=== PATIENT | male | born 1935 | race Caucasian/White ===

== ENCOUNTER 2021-04-07 16:56 | Emergency (ER) | payer MEDICARE ==
[2021-04-07] MEDS ORDERED: Sodium Chloride 0.9% 10 ML Syringe FLUSH PRN (17:01)
[2021-04-07] MEDS ORDERED: Sodium Chloride 0.9% 500 ML IV ONE (17:01)
[2021-04-07] MEDS ORDERED: Labetalol 100 MG in Sodium Chloride 0.9% 80 ML IV SCH (17:15)
--- NOTE | 2021-04-07 17:16 | EDM.PDOC ---
ED HPI GENERAL MEDICAL PROBLEM - General Chief Complaint: Neuro Symptoms/Deficits Stated Complaint: STROKE Time Seen by Provider: 04/07/21 16:57 Source of Information: Reports: Patient History Limitations: Reports: No Limitations - History of Present Illness INITIAL COMMENTS - FREE TEXT/NARRATIVE: Code stroke 1700 met the patient in the garage and wheeled the patient directly to CT scanner for CT head. Karlos is an 85-year-old male presenting to the ED with acute onset of left-sided weakness, difficulty walking, and some difficulty with word finding. Patient was in his usual state of health until approximately 60 minutes ago when he started having symptoms. They have progressed over the last 30 minutes prompting his to bring him to the ER for evaluation. Patient has a history of TIAs in the past. He takes an aspirin every other day. Denies any trauma. He does state that it is difficult for him to walk and ambulate. Has noticeable weakness in the left side with upper and lower extremity. He does have a history of hypertension for which he takes valsartan. - Related Data Allergies Allergy/AdvReac Type Severity Reaction Status Date / Time No Known Allergies Allergy Verified 04/07/21 17:21 Home Meds: Home Meds Minocycline [Minocin] 50 mg PO ASDIRECTED 02/27/16 [History] Potassium Chloride 20 meq PO DAILY 02/27/16 [History] Sildenafil Citrate [Viagra] 25 mg PO ASDIRECTED 02/27/16 [History] Valsartan [Diovan] 60 mg PO DAILY 02/27/16 [History] atorvaSTATin [Lipitor] 20 mg PO DAILY 02/27/16 [History] Past Medical History HEENT History: Reports: Hard of Hearing Cardiovascular History: Reports: High Cholesterol, Hypertension Genitourinary History: Reports: Prostate Disorder Oncologic (Cancer) History: Reports: Other (See Below) Other Oncologic History: skin cancer - Infectious Disease History Infectious Disease History: Reports: Chicken Pox, Measles, Mumps - Past Surgical History HEENT Surgical History: Reports: Tonsillectomy ED ROS GENERAL - Review of Systems Review Of Systems: See Below Constitutional: Reports: No Symptoms HEENT: Reports: No Symptoms Respiratory: Reports: No Symptoms Cardiovascular: Reports: Blood Pressure Problem (Slightly elevated blood pressure of 158/72) Endocrine: Reports: No Symptoms GI/Abdominal: Reports: No Symptoms : Reports: No Symptoms Musculoskeletal: Reports: No Symptoms Skin: Reports: No Symptoms Neurological: Reports: Weakness (Left upper and lower extremity weakness.), Change in Speech (Trouble with word finding.) Psychiatric: Reports: No Symptoms Hematologic/Lymphatic: Reports: No Symptoms Immunologic: Reports: No Symptoms ED EXAM, NEURO - Physical Exam Exam: See Below Exam Limited By: No Limitations General Appearance: Alert, No Apparent Distress, Anxious Eye Exam: Bilateral Eye: EOMI, PERRL Throat/Mouth: Normal Inspection, Normal Oropharynx, Normal Voice, No Airway Compromise Head Exam: Atraumatic, Normocephalic Neck: Normal Inspection, Supple, Non-Tender, Full Range of Motion. No: Carotid Bruit, Lymphadenopathy (R), Lymphadenopathy (L) Respiratory/Chest: No Respiratory Distress, Lungs Clear, Normal Breath Sounds Cardiovascular: Normal Peripheral Pulses, Regular Rate, Rhythm, No Murmur GI/Abdominal: Normal Bowel Sounds, Soft, Non-Tender Neurological: Alert, CN II-XII Intact, Oriented x 3, Abnormal Gait (Left leg weakness), Abnormal Motor (Left upper extremity and lower extremity weakness), Difficulty Walking, Other (NIH stroke score of 3). No: Normal Gait, Saddle Anesthesia Extremities: Normal Inspection, Normal Range of Motion, Normal Capillary Refill Psychiatric: Normal Affect, Normal Mood Skin Exam: Warm, Dry, Intact, Normal Color #1 Interpretation EKG Date: 04/07/21 Time: 17:11 Rhythm: NSR Rate (Beats/Min): 70 Garner: LAD-Left Garner Deviation P-Wave: Present QRS: Normal (Left anterior fascicular block) ST-T: Normal QT: Normal Comparison: NA - No Prior EKG *Q Meaningful Use (ADM) - Stroke *Q Anticoagulation Contraindications Stroke *Q: Medical/Procedure Contrai (Intracranial intraparenchymal bleed) Course - Vital Signs Last Recorded V/S: Last Vital Signs Temp 36.5 C 04/07/21 17:21 Pulse 64 04/07/21 17:33 Resp 21 H 04/07/21 17:33 BP 167/93 H 04/07/21 17:33 Pulse Ox 96 04/07/21 17:33 - Orders/Labs/Meds Orders: Active Orders 24 hr Category Date Time Status Assess Neurological Status [RC] CONTINUOUS Care 04/07/21 17:01 Active Blood Glucose Check, Bedside [RC] STAT Care 04/07/21 17:01 Active Cardiac Monitoring [RC] CONTINUOUS Care 04/07/21 17:01 Active Communication Order [RC] STAT Care 04/07/21 17:01 Active Height and Weight [RC] UPON Care 04/07/21 17:01 Active NIH Stroke Scale [RC] Q15M Care 04/07/21 17:01 Active NIH Stroke Scale [RC] STAT Care 04/07/21 17:01 Active Oxygen Therapy, ED [RC] ASDIRECTED Care 04/07/21 17:01 Active Peripheral IV Care [RC] . DIRECTED Care 04/07/21 17:01 Active Vital Signs [RC] Q15M Care 04/07/21 17:01 Active Labetalol [Normodyne] 100 mg Med 04/07/21 17:15 Active Sodium Chloride 0.9% [Normal Saline] 80 ml IV TITRATE Sodium Chloride 0.9% [Normal Saline] 500 ml Med 04/07/21 17:01 Active IV BOLUS Sodium Chloride 0.9% [Saline Flush] Med 04/07/21 17:01 Active 10 ml FLUSH ASDIRECTED PRN niCARdipine 25 MG in Normal Saline @ 5 MG/HR(250ml) Med 04/07/21 18:00 Ordered niCARdipine HCl [Nicardipine HCl] 25 mg Sodium Chloride 0.9% [Normal Saline] 240 ml IV TITRATE Peripheral IV Insertion Adult [OM.PC] Stat Oth 04/07/21 17:01 Ordered Peripheral IV Insertion Adult [OM.PC] Stat Oth 04/07/21 17:01 Ordered Resuscitation Status Stat Resus Stat 04/07/21 17:01 Ordered EKG 12 Lead [EK] Stat Ther 04/07/21 17:01 Ordered Medication Orders Sodium Chloride (Normal Saline) 500 mls @ 150 mls/hr IV BOLUS ONE Stop: 04/07/21 20:20 Last Admin: 04/07/21 17:24 Dose: 150 mls/hr Documented by: PREILOR Labetalol HCl 100 mg/ Sodium (Chloride) 100 mls @ 30 mls/hr IV TITRATE CONNIE; Protocol Last Admin: 04/07/21 17:25 Dose: 0.5 mg/min, 30 mls/hr Documented by: PREILOR Nicardipine HCl 25 mg/ Sodium (Chloride) 250 mls @ 50 mls/hr IV TITRATE CONNIE; Protocol Sodium Chloride (Sodium Chloride 0.9% 10 Ml Syringe) 10 ml FLUSH ASDIRECTED PRN PRN Reason: Keep Vein Open Labs: Laboratory Tests 04/07/21 04/07/21 04/07/21 Range/Units 17:01 17:06 17:06 WBC 8.6 (4.5-11.0) K/uL RBC 4.36 (4.30-5.90) M/uL Hgb 13.9 (12.0-15.0) g/dL Hct 40.6 (40.0-54.0) % MCV 93 (80-98) fL MCH 32 H (27-31) pg MCHC 34 (32-36) % Plt Count 259 (150-400) K/uL Neut % (Auto) 69.1 H (36-66) % Lymph % (Auto) 20.5 L (24-44) % Sumner % (Auto) 7.0 H (2-6) % Eos % (Auto) 3.1 (2-4) % Baso % (Auto) 0.3 (0-1) % PT 10.3 (9.5-12.0) sec INR 0.94 (0.80-1.20) APTT 22.1 L (27.0-36.0) sec Sodium 138 L (140-148) mmol/L Potassium 3.3 L (3.6-5.2) mmol/L Chloride 103 (100-108) mmol/L Carbon Dioxide 28 (21-32) mmol/L Anion Gap 10.3 (5.0-14.0) mmol/L BUN 21 H (7-18) mg/dL Creatinine 1.3 (0.8-1.3) mg/dL Est Cr Clr Drug Dosing 42.30 mL/min Estimated GFR (MDRD) 53 L (>60) Glucose 97 (74-106) mg/dL Calcium 8.5 (8.5-10.1) mg/dL Total Bilirubin 0.6 (0.2-1.0) mg/dL AST 23 (15-37) U/L ALT 30 (12-78) U/L Alkaline Phosphatase 67 (46-116) U/L Troponin I < 0.017 (0.000-0.056) ng/mL Total Protein 6.5 (6.4-8.2) g/dL Albumin 3.4 (3.4-5.0) g/dL Globulin 3.1 (2.3-3.5) g/dL Albumin/Globulin Ratio 1.1 L (1.2-2.2) Meds: Medications Generic Name Dose Route Start Last Admin Trade Name Mikeq PRN Reason Stop Dose Admin Sodium Chloride 500 mls @ 150 mls/hr 04/07/21 17:01 04/07/21 17:24 Normal Saline IV 04/07/21 20:20 150 mls/hr BOLUS ONE Administration Labetalol HCl 100 mg/ Sodium 100 mls @ 30 mls/hr 04/07/21 17:15 04/07/21 17:25 Chloride IV 0.5 mg/min TITRATE CONNIE 30 mls/hr Administration Protocol 0.5 MG/MIN Nicardipine HCl 25 mg/ Sodium 250 mls @ 50 mls/hr 04/07/21 18:00 Chloride IV TITRATE CONNIE Protocol 5 MG/HR Sodium Chloride 10 ml 04/07/21 17:01 Sodium Chloride 0.9% 10 Ml Syringe FLUSH ASDIRECTED PRN Keep Vein Open - Re-Assessments/Exams Free Text/Narrative Re-Assessment/Exam: 04/07/21 17:48 patient has a small intraparenchymal bleed in the right internal capsule. We started him initially on labetalol IV titrated for a systolic blood pressure of 140, neurosurgery, Dr. Solis recommended nicardipine instead with the same goal. This was changed over. We will have air care take the patient to [facility] for admission to the ICU for hypertensive intracranial bleed. Patient was excepted by Dr. Parra in transfer. CT images were pushed to [facility] PACS system. Labs are currently pending but will be forwarded as they become available. 04/07/21 17:50 labs show CBC with a leukocyte of 8.6, hemoglobin of 13.9, hematocrit of 40.6, platelet count of 259,000. Comprehensive metabolic panel is unremarkable with exception of a potassium of 3.3. Creatinine is 1.3 and a glucose of 97. Troponin is negative at less than 0.017. PT is 10.3 with an INR of 0.[address] of the brain shows a 16mm intraparenchymal hemorrhage in the right LMF adjacent to the internal capsule. Departure - Departure Time of Disposition: 17:52 Disposition: DC/Tfer to Acute Hospital 02 Clinical Impression: Intraparenchymal hemorrhage of brain - Discharge Information Forms: ED Department Discharge Critical Care Note - Critical Care Note Total Time (mins): 30 Comments: Critical care time of 30 minutes to facilitate work-up of the patient, arrange for transfer the patient, and continue management of the patient. This excludes procedures. Sepsis Event Note (ED) - Focused Exam Vital Signs: Vital Signs Temp Pulse Resp BP Pulse Ox 04/07/21 17:33 64 21 H 167/93 H 96 04/07/21 17:21 36.5 C 68 16 158/94 H 98 04/07/21 17:15 72 16 168/101 H 98 04/07/21 17:05 36.5 C 68 16 158/94 H 98 - Problem List & Annotations (1) Intraparenchymal hemorrhage of brain SNOMED Code(s): 092079862 Code(s): I61.9 - NONTRAUMATIC INTRACEREBRAL HEMORRHAGE, UNSPECIFIED Status: Acute Priority: High Current Visit: Yes - Problem List Review Problem List Initiated/Reviewed/Updated: Yes - My Orders Last 24 Hours: My Active Orders 04/07/21 17:01 Assess Neurological Status [RC] CONTINUOUS Blood Glucose Check, Bedside [RC] STAT Cardiac Monitoring [RC] CONTINUOUS Communication Order [RC] STAT Height and Weight [RC] UPON NIH Stroke Scale [RC] Q15M NIH Stroke Scale [RC] STAT Oxygen Therapy, ED [RC] ASDIRECTED Peripheral IV Care [RC] . DIRECTED Vital Signs [RC] Q15M Sodium Chloride 0.9% [Normal Saline] 500 ml IV BOLUS Sodium Chloride 0.9% [Saline Flush] 10 ml FLUSH ASDIRECTED PRN Peripheral IV Insertion Adult [OM.PC] Stat Peripheral IV Insertion Adult [OM.PC] Stat Resuscitation Status Stat EKG 12 Lead [EK] Stat 04/07/21 17:15 Labetalol [Normodyne] 100 mg Sodium Chloride 0.9% [Normal Saline] 80 ml IV TITRATE 04/07/21 18:00 niCARdipine 25 MG in Normal Saline @ 5 MG/HR(250ml) niCARdipine HCl [Nicardipine HCl] 25 mg Sodium Chloride 0.9% [Normal Saline] 240 ml IV TITRATE - Assessment/Plan Last 24 Hours: My Active Orders 04/07/21 17:01 Assess Neurological Status [RC] CONTINUOUS Blood Glucose Check, Bedside [RC] STAT Cardiac Monitoring [RC] CONTINUOUS Communication Order [RC] STAT Height and Weight [RC] UPON NIH Stroke Scale [RC] Q15M NIH Stroke Scale [RC] STAT Oxygen Therapy, ED [RC] ASDIRECTED Peripheral IV Care [RC] . DIRECTED Vital Signs [RC] Q15M Sodium Chloride 0.9% [Normal Saline] 500 ml IV BOLUS Sodium Chloride 0.9% [Saline Flush] 10 ml FLUSH ASDIRECTED PRN Peripheral IV Insertion Adult [OM.PC] Stat Peripheral IV Insertion Adult [OM.PC] Stat Resuscitation Status Stat EKG 12 Lead [EK] Stat 04/07/21 17:15 Labetalol [Normodyne] 100 mg Sodium Chloride 0.9% [Normal Saline] 80 ml IV TITRATE 04/07/21 18:00 niCARdipine 25 MG in Normal Saline @ 5 MG/HR(250ml) niCARdipine HCl [Nicardipine HCl] 25 mg Sodium Chloride 0.9% [Normal Saline] 240 ml IV TITRATE
--- NOTE | 2021-04-07 17:22 | CRLCT ---
For Patients: As a result of the Century Cures Act, medical imaging exams and procedure reports are released immediately into your electronic medical record. You may view this report before your referring provider. If you have questions, please contact your health care provider. INDICATION: Acute left-sided weakness. TECHNIQUE: CT of the head without contrast. Coronal and sagittal reformats are included. COMPARISON: No comparisons. FINDINGS: No CT evidence of acute cortical infarct. No loss of roberts white matter differentiation. No hyperdense vessels to suggest intracranial thrombus. There is a rounded hyperdense hemorrhage within the right ventral thalamus which measures up to 16 millimeters in axial plane and 9 millimeters in craniocaudal plane. Small amount of surrounding vasogenic edema. No mass effect or midline shift. No hydrocephalus or extra-axial collections. Small chronic lacunar infarctions within the left caudate/internal capsule anterior limb. Moderate generalized parenchymal volume loss. Patchy hypoattenuation within the supratentorial white matter, typical for chronic microvascular ischemic changes. Thick vascular calcifications carotid siphons and intradural vertebral arteries. No acute osseous abnormalities. Complete opacification of the right frontal sinus, frontoethmoidal recess, right-sided ethmoid air cells and right maxillary sinus, compatible with ostiomeatal unit pattern of obstruction. Mastoid air cells are clear. Normal soft tissues. IMPRESSION: 1. Acute 16 millimeter hemorrhage within the right ventral thalamus, most likely hypertensive. 2. Chronic intracranial findings as above. Please note that all CT scans at this facility use dose modulation, iterative reconstruction, and/or weight-based dosing when appropriate to reduce radiation dose to as low as reasonably achievable. Dictated by Ankit Bullard MD @ 04/07/2021 5:19:53 PM (Electronically Signed)
[2021-04-07 17:35] VITALS: BP 167/93; PULSE 64
[2021-04-07] MEDS ORDERED: niCARdipine HCl 25 MG in Sodium Chloride 0.9% 240 ML IV SCH (18:00)
== END 2021-04-07 18:01 ==
LOC: JP.ED 16:56
DX: I61.9 Nontraumatic intracerebral hemorrhage, unspecified (principal); E78.00 Pure hypercholesterolemia, unspecified; I10 Essential (primary) hypertension; Z79.899 Other long term (current) drug therapy
CPT/HCPCS: 36415; 70450; 80053; 84484; 85025; 85610; 85730; 93005; 96365; 96375; 99285; J3490; J7040; J7050